=== PATIENT | male | born 1935 | race Caucasian/White ===

== ENCOUNTER 2017-02-20 16:17 | Emergency (ER) | payer MEDICARE, BC ==
[~2017-02-20] VITALS: Ht 167.6 cm; Wt 65.9 kg
[~2017-02-20 16:17] MED LIST: ASPIRIN 32325 MG/TAB PO; ASPIRIN E.C. 8181 MG PO; COREG 6.256.25 MG/TA PO; FISH OIL 1000MG1 CAP PO; NITROSTAT0.4 MG/TAB SL; PEPCID40 MG PO; PLAVIX 75MG TAB75 MG PO; ZOCOR 20MG20 MG PO; ZOCOR 40MG40 MG PO; [UNRECOGNIZED DRUG - REMARK] PO
[2017-02-20 16:39] VITALS: TEMP 97.7
[2017-02-20 17:07] LABS: BASO # 0.1 (0.0-0.2); BASO % 0.7 % (0.0-2.0); EOS # 0.1 (0.0-0.7); EOS % 0.8 % (0-4.0); GRAN % 59.6 % (42.2-75.2); HEMATOCRIT 37.7 % (42.0-52.0); HEMOGLOBIN 12.6 g/dl (13.5-18.0); LYMPH # 2.6 (1.2-3.4); LYMPH % 30.3 % (20.0-51.0); MEAN CELL VOLUME 95 fl (80.0-100.0); MEAN CORPUSCULAR HEMOGLOBIN 32 pg (27.0-31.0); MEAN CORPUSCULAR HGB CONC 33 g/dl (33.0-37.0); MEAN PLATELET VOLUME 9.2 fl (7.4-10.4); MONO # 0.7 (0.1-0.6); MONO % 8.5 % (1.7-9.3); PLATELET COUNT 316 K/mm3 (130-400); RED BLOOD COUNT 3.99 M/mm3 (4.20-5.60); REDCELL DISTRIBUTION WIDTH-CV 11.9 % (11.5-14.5); WHITE BLOOD COUNT 8.4 K/mm3 (4.8-10.8)
[2017-02-20 17:11] LABS: INR 1.1 (0.8-3.0); PROTHROMBIN TIME 12.3 SECONDS (9.7-12.8)
[2017-02-20 17:14] LABS: PARTIAL THROMBOPLASTIN TIME 35.2 SECONDS (26.0-37.0)
[2017-02-20 17:17] LABS: ADJUSTED CALCIUM 9.5 mg/dL (8.4-10.2); ALANINE AMINOTRANSFERASE 27 U/L (21-72); ALBUMIN 3.2 gm/dL (3.5-5.0); ALKALINE PHOSPHATASE 103 U/L (50-136); ANION GAP 9 mmol/L (7-16); BILIRUBIN,TOTAL 0.5 mg/dL (0.0-1.0); BLOOD UREA NITROGEN 29 mg/dL (9-20); CALCIUM 8.9 mg/dL (8.4-10.2); CARBON DIOXIDE 27 mmol/L (22-30); CHLORIDE 103 mmol/L (98-107); CREATININE, serum 1.15 mg/dL (0.66-1.25); GLUCOSE 113 mg/dL (74-106); POTASSIUM 4.4 mmol/L (3.4-5.0); SODIUM 140 mmol/L (137-145); TOTAL PROTEIN 6.4 gm/dL (6.4-8.2)
[2017-02-20 17:29] LABS: TROPONIN-I < 0.012 ng/mL (0.000-0.034)
[2017-02-20] MEDS ORDERED: ASPIRIN 81M81 MG/TA2 PO (17:29)
[2017-02-20] MEDS ORDERED: EPA FISH OIL1 SGL PO (17:32)
[2017-02-20] MEDS ORDERED: COREG 6.256.25 MG/TA PO (17:32)
[2017-02-20] MEDS ORDERED: LIPITOR 40MG TA40 MG PO (17:32)
[2017-02-20] MEDS ORDERED: PLAVIX 75MG TAB75 MG PO (17:32)
[2017-02-20 19:21] VITALS: BP 103/62; PULSE 68
== END 2017-02-20 19:25 | disposition short-term general hospital (02) ==
LOC: COL.ER 16:17
PROVIDERS: Family Medicine
DX: I47.1 Supraventricular tachycardia (principal); I48.92 Unspecified atrial flutter; I25.10 Atherosclerotic heart disease of native coronary artery without angina pectoris; R07.9 Chest pain, unspecified; Z79.82 Long term (current) use of aspirin; Z79.02 Long term (current) use of antithrombotics/antiplatelets
CPT/HCPCS: J0153; J7030

== ENCOUNTER → 2017-12-17 | Outpatient (CLI) | payer MEDICARE, BC ==
[~2017-12-17] VITALS: Ht 167.6 cm; Wt 64.2 kg
[~2017-12-17] MED LIST changes: +ASPIRIN 81M81 MG/TA2 PO; +EPA FISH OIL1 SGL PO; +LIPITOR 40MG TA40 MG PO; +ZEBETA 5MG5 MG PO
[2017-12-17 07:13] VITALS: BP 131/65; PULSE 67
[2017-12-17 08:20] VITALS: BP 140/69; PULSE 65
== END ==
LOC: COL.RAD 12-13 10:00
DX: M51.37 Other intervertebral disc degeneration, lumbosacral region (principal)
CPT/HCPCS: J3301; Q9965

== ENCOUNTER 2020-11-11 14:04 | Inpatient (IN) | payer MEDICARE, BC ==
[~2020-11-11] VITALS: Ht 165.1 cm; Wt 67.4 kg
[2020-11-11] VITALS (375 sets, daily range): BP systolic 155–161; BP diastolic 64–73; PULSE 51–72; TEMP 97.1–98; O2SAT 87–99
[2020-11-11 14:36] LABS: BASO # 0.1 (0.0-0.2); BASO % 0.8 % (0.0-2.0); EOS # 0.1 (0.0-0.7); EOS % 0.8 % (0-4.0); GRAN # 4.2 (1.4-6.5); GRAN % 64.6 % (42.2-75.2); HEMATOCRIT 37.7 % (42.0-52.0); HEMOGLOBIN 12.7 g/dl (13.5-18.0); LYMPH # 1.6 (1.2-3.4); LYMPH % 24.3 % (20.0-51.0); MEAN CELL VOLUME 95 fl (80.0-100.0); MEAN CORPUSCULAR HEMOGLOBIN 32 pg (27.0-31.0); MEAN CORPUSCULAR HGB CONC 34 g/dl (33.0-37.0); MEAN PLATELET VOLUME 9.4 fl (7.4-10.4); MONO # 0.6 (0.1-0.6); MONO % 9.3 % (1.7-9.3); PLATELET COUNT 283 K/mm3 (130-400); RED BLOOD COUNT 3.95 M/mm3 (4.20-5.60); REDCELL DISTRIBUTION WIDTH-CV 12.7 % (11.5-14.5)
[2020-11-11 14:49] LABS: ALBUMIN 3.7 gm/dL (3.5-5.0); BILIRUBIN,TOTAL 1.2 mg/dL (0.0-1.0); CALCIUM 8.8 mg/dL (8.4-10.2); CREATININE, serum 0.97 (0.66-1.25); TOTAL PROTEIN 7.2 gm/dL (6.4-8.2)
[2020-11-11 14:53] LABS: POTASSIUM 2.9 mmol/L (3.4-5.0)
[2020-11-11 15:03] LABS: INR 1.1 (0.8-3.0); PROTHROMBIN TIME 12.4 SECONDS (9.7-12.8)
[2020-11-11 15:14] LABS: TROPONIN-I 0.136 ng/mL (0.000-0.035)
[2020-11-11] MEDS ORDERED: COREG 6.256.25 MG/TA PO (16:37)
--- NOTE | 2020-11-11 17:41 | NUR ---
MD Yovani ordered for Nitroglycerine gtt to be started and maintained
--- NOTE | 2020-11-11 18:07 | NUR ---
ALLEN Gallegos notified of critical Troponin level and sustained hypertension with systolics between 150-160 - Nitro gtt specific orders recieved and imputed
[2020-11-12] VITALS (1169 sets, daily range): BP systolic 130–166; BP diastolic 57–92; PULSE 61–77; TEMP 97.4–98.4; O2SAT 86–99
[2020-11-12 05:47] LABS: ALBUMIN 3.2 gm/dL (3.5-5.0); BILIRUBIN,TOTAL 0.8 mg/dL (0.0-1.0); CHOLESTEROL RISK RATIO 4.6; CREATININE, serum 0.97 (0.66-1.25); POTASSIUM 3.2 mmol/L (3.4-5.0); TOTAL PROTEIN 6.2 gm/dL (6.4-8.2)
[2020-11-12 05:59] LABS: TROPONIN-I 0.136 ng/mL (0.000-0.035)
--- NOTE | 2020-11-12 08:38 | NUR ---
MD Dany and [facility] nurse in room with pt. In room with pt is spouse and son.
--- NOTE | 2020-11-12 08:49 | NUR ---
Pt to cathlab
--- NOTE | 2020-11-12 10:40 | NUR ---
12-Lead EKG complete. Ultrasound in room for echocardiogram
--- NOTE | 2020-11-12 14:00 | NUR ---
Pt experiencing minor confusion, reorientation provided and retained
--- NOTE | 2020-11-12 15:20 | NUR ---
Train Brake Operator met with patient to discuss discharge planning. Patient's , Landy (ph#[phone]) and son, ACE. Patient lives in [facility] with his and sees Dr. Murray for primary care. Patient obtains medications from [facility] with no difficulties. Patient does not use any DME and is independent with ADLS. Patient does not have Advance Directives and is not interested in completing DPOA-HC at this time. Discharge Plan: Home with spouse.
--- NOTE | 2020-11-12 15:36 | NUR ---
MD Yovani notified: increased confusion, halucinations with water on floor and spider on bed. Reorientation provided with limited recall. Pt noncombative and pleasant.
--- NOTE | 2020-11-12 17:50 | NUR ---
Pt restless making attempts to get out of bed, pt did trip bed alarm and was standing at bedside tangled in iv lines and monitoring equipment. Pt steady on feet. Pt back in bed without difficulty and only minor aggression. Pt given detailed reorientation and pt able to comprehend and remember things about hospital situation that earlier he was not able to recall. Charge,MORGAN Okeefe informed at first sign of confusion from earlier - MORGAN Rayauniversal branch consultant notified on situation and pt's wish to get out of bed and high fall risk
--- NOTE | 2020-11-12 20:15 | NUR ---
Assessment complete and charted. Patient has drainage present on TR band. Report from dayshift stated no change in drainage from previous assessments. Removed 2 ml of air from TR band at this time. Patient disorientated. Frequent reorientation required. Call light in reach. Bed alarm in place.
[2020-11-13] VITALS (256 sets, daily range): BP systolic 133–149; BP diastolic 57–67; PULSE 64–72; TEMP 98–98.8; O2SAT 79–99
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
--- NOTE | 2020-11-13 05:32 | NUR ---
Patient pacing in room. Refusing all medications and telemetry. Elina HARO aware.
--- NOTE | 2020-11-13 06:59 | NUR ---
Patient continues to refuse monitoring this AM along with Nitro gtt. Resting in bed. Report given to MORGAN Sevilla
[2020-11-13 07:16] LABS: BASO # 0.1 (0.0-0.2); BASO % 0.6 % (0.0-2.0); EOS # 0.1 (0.0-0.7); EOS % 0.6 % (0-4.0); GRAN # 6.2 (1.4-6.5); GRAN % 79.8 % (42.2-75.2); HEMOGLOBIN 11.9 g/dl (13.5-18.0); LYMPH # 0.8 (1.2-3.4); LYMPH % 9.8 % (20.0-51.0); MEAN CELL VOLUME 97 fl (80.0-100.0); MEAN CORPUSCULAR HEMOGLOBIN 32 pg (27.0-31.0); MEAN CORPUSCULAR HGB CONC 33 g/dl (33.0-37.0); MEAN PLATELET VOLUME 9.4 fl (7.4-10.4); MONO # 0.7 (0.1-0.6); MONO % 8.9 % (1.7-9.3); PLATELET COUNT 255 K/mm3 (130-400); RED BLOOD COUNT 3.72 M/mm3 (4.20-5.60); REDCELL DISTRIBUTION WIDTH-CV 12.9 % (11.5-14.5)
[2020-11-13 07:22] LABS: CALCIUM 8.4 mg/dL (8.4-10.2); CREATININE, serum 1.06 (0.66-1.25); MAGNESIUM 2.1 mg/dL (1.6-2.3); POTASSIUM 3.5 mmol/L (3.4-5.0)
[2020-11-13 07:23] LABS: HEMATOCRIT 36.2 % (42.0-52.0)
--- NOTE | 2020-11-13 07:47 | NUR ---
Pt ambulated around unit multiple times without difficulty. Pt oriented and pleasant stating "I feel good, I am ready to go home".
[2020-11-13] MEDS ORDERED: ZEBETA10 MG PO (10:09)
--- NOTE | 2020-11-13 10:49 | NUR ---
Pt ambulated out of unit to family's vehicle without difficulty. All questions answered - pt's spouse and son DJ present
== END 2020-11-13 10:42 | disposition home or self-care (01) | DRG 246 ==
LOC: COL.ER 14:04 → ICU 15:55 → MEDICAL 15:55 → ICU 16:44
PROVIDERS: Emergency Medicine; ADMIT Hospitalist
PROC: 027034Z Dilation of Coronary Artery, One Artery with Drug-eluting Intraluminal Device, Percutaneous Approach (ICD-10-PCS; principal; 2020-11-12)
PROC: 4A023N7 Measurement of Cardiac Sampling and Pressure, Left Heart, Percutaneous Approach (ICD-10-PCS; 2020-11-12)
PROC: B2111ZZ Fluoroscopy of Multiple Coronary Arteries using Low Osmolar Contrast (ICD-10-PCS; 2020-11-12)
DX: I21.4 Non-ST elevation (NSTEMI) myocardial infarction (principal); I50.31 Acute diastolic (congestive) heart failure; F05 Delirium due to known physiological condition; I25.10 Atherosclerotic heart disease of native coronary artery without angina pectoris; E78.5 Hyperlipidemia, unspecified; J44.9 Chronic obstructive pulmonary disease, unspecified; I27.20 Pulmonary hypertension, unspecified; E87.6 Hypokalemia; F17.210 Nicotine dependence, cigarettes, uncomplicated; D64.9 Anemia, unspecified; Z85.51 Personal history of malignant neoplasm of bladder; Z79.82 Long term (current) use of aspirin; Z20.822 Contact with and (suspected) exposure to COVID-19
CPT/HCPCS: 99223-AI; 99232-AI; 99239; C1725; C1769; C1874; C1887; C9600; J0583; J1644; J1650; J2250; J2405; J3010; J3480; J7030

== ENCOUNTER 2020-12-13 17:11 | Outpatient (RCR) | payer MEDICARE, BC ==
[~2020-12-13 17:11] MED LIST changes: +ZEBETA10 MG PO
== END 2020-12-20 16:44 | disposition still patient (30) ==
LOC: COL.CR 17:11
DX: Z48.812 Encounter for surgical aftercare following surgery on the circulatory system (principal); Z95.5 Presence of coronary angioplasty implant and graft

== ENCOUNTER 2021-01-10 11:08 | Emergency (ER) | payer MEDICARE, BC ==
[~2021-01-10] VITALS: Ht 162.6 cm; Wt 61.4 kg
[2021-01-10 11:15] VITALS: TEMP 97.6
[2021-01-10 11:26] LABS: COLLECTION METHOD CLEAN CATCH
[2021-01-10 11:47] LABS: BASO # 0.1 (0.0-0.2); BASO % 0.9 % (0.0-2.0); EOS # 0.1 (0.0-0.7); EOS % 1.6 % (0-4.0); GRAN % 70.5 % (42.2-75.2); HEMATOCRIT 38.9 % (42.0-52.0); HEMOGLOBIN 13.2 g/dl (13.5-18.0); LYMPH # 1.3 (1.2-3.4); LYMPH % 18.8 % (20.0-51.0); MEAN CELL VOLUME 95 fl (80.0-100.0); MEAN CORPUSCULAR HEMOGLOBIN 32 pg (27.0-31.0); MEAN CORPUSCULAR HGB CONC 34 g/dl (33.0-37.0); MEAN PLATELET VOLUME 9.8 fl (7.4-10.4); MONO # 0.6 (0.1-0.6); MONO % 8.1 % (1.7-9.3); PLATELET COUNT 300 K/mm3 (130-400); REDCELL DISTRIBUTION WIDTH-CV 12.7 % (11.5-14.5)
[2021-01-10 11:52] LABS: MUCOUS Present /lpf; PH 6 (5-8); SQUAMOUS EPITHELIAL None Seen /hpf; URINE APPEARANCE Cloudy; URINE BACTERIA None Seen /hpf; URINE BILIRUBIN Negative (NEGATIVE); URINE BLOOD 3+ (NEGATIVE); URINE COLOR Amber; URINE GLUCOSE Negative (NEGATIVE); URINE KETONE Negative (NEGATIVE); URINE LEUKOCYTE ESTERASE Negative (NEGATIVE); URINE NITRATE Negative (NEGATIVE); URINE PROTEIN(semi-quant) 2+ (NEGATIVE); URINE RBC >50 /hpf; URINE UROBILINOGEN Negative (NEGATIVE)
[2021-01-10 11:56] LABS: ALBUMIN 3.6 gm/dL (3.5-5.0); BILIRUBIN,TOTAL 0.6 mg/dL (0.0-1.0); CALCIUM 8.6 mg/dL (8.4-10.2); CREATININE, serum 1.03 (0.66-1.25); POTASSIUM 3.2 mmol/L (3.4-5.0)
[2021-01-10 12:48] VITALS: BP 151/78; PULSE 54
== END 2021-01-10 12:05 | disposition home or self-care (01) ==
LOC: COL.ER 11:08
PROVIDERS: Family Medicine
DX: R31.9 Hematuria, unspecified (principal); I10 Essential (primary) hypertension; E78.5 Hyperlipidemia, unspecified; J44.9 Chronic obstructive pulmonary disease, unspecified; I25.10 Atherosclerotic heart disease of native coronary artery without angina pectoris; Z85.51 Personal history of malignant neoplasm of bladder; Z79.02 Long term (current) use of antithrombotics/antiplatelets; Z79.82 Long term (current) use of aspirin; Z79.899 Other long term (current) drug therapy

== ENCOUNTER 2021-01-28 05:15 | Day surgery (SDC) | payer MEDICARE, BC ==
[2021-01-28] VITALS (14 sets, daily range): BP systolic 113–197; BP diastolic 54–78; PULSE 45–107; TEMP 97.3–97.8
[~2021-01-28] VITALS: Ht 165.1 cm; Wt 62.0 kg
[2021-01-28] MEDS ORDERED: SEROQUEL 2525 MG/TAB PO (06:29)
--- NOTE | 2021-01-28 08:40 | NUR ---
Pt returns from PACU to [facility], at bedside. Pt awake and alert, denies needs. Provided applesauce and coffee. VSS.
--- NOTE | 2021-01-28 08:55 | NUR ---
Pt's blood pressure has increased and now complains of abdominal pain, has been up to the bathroom without difficulty and voided with minimal bleeding and small clots. Has tolerated food with no nausea, will give a pain pill.
--- NOTE | 2021-01-28 09:55 | NUR ---
Pt has been up to the bathroom multiple times for bladder spasms and complains of lower abdominal pain, reports minimal clots in urine. Dr. Raymond notified and orders received for a Levsin 0.125 mg SL.
--- NOTE | 2021-01-28 10:15 | NUR ---
Pt sitting on side of bed, no improvement in pain, heart rate noted to be irregular and range from 45-67. MJosephine Ureña CATERING SOUS CHEF notified and no new orders received.
--- NOTE | 2021-01-28 10:40 | NUR ---
Pt given Morphine and encouraged to lay down and rest, warm blanket applied to abdomen.
--- NOTE | 2021-01-28 11:20 | NUR ---
Morphine repeated for abdominal pain and bladder spasms. Pt continues to go to the bathroom frequently, reports urine is yellow with very small clots.
--- NOTE | 2021-01-28 12:00 | NUR ---
Dr. Raymond notified of pt's B/p, heart rate and pain. Order received to have pt to go to the surgical floor and he will come evaluate pt later today. wool shearing supervisor notified.
--- NOTE | 2021-01-28 12:15 | NUR ---
Pt up to the bathroom and vomitted a small amount into the toilet, reports pain has eased slightly but now has an upset stomach. Pt returns to bed and Zofran given per orders.
--- NOTE | 2021-01-28 13:05 | NUR ---
Pt back to the bathroom feels nauseated again, urine yellow and now clear. Discomfort 09/22. Will continue to monitor. Awaiting call from Surgical floor for report.
--- NOTE | 2021-01-28 13:30 | NUR ---
Pt eating a cracker, stills feels a little nauseated so doesn't want to try a pain pill at this time. remains at bedside, call light in reach.
--- NOTE | 2021-01-28 13:45 | NUR ---
Pt now feeling better and requesting to go home. B/p has improved and heart rate regular now. Dr. Raymond notified and okay with pt to go home and to have pt come by his office to picker operator prescription. Pt reports no clots in urine and light pink to yellow in color.
--- NOTE | 2021-01-28 14:25 | NUR ---
Pt and given discharge instructions, IV d/c'd to right wrist. Pt to private car via w/c left in care of his .
[2021-01-29] MEDS ORDERED: PEPCID 20MG TAB20 MG PO (06:59)
[2021-01-29] MEDS ORDERED: ZOFRAN ODT4 MG PO (06:59)
== END 2021-01-28 14:25 | disposition home or self-care (01) ==
LOC: SDCO 05:15
DX: R31.0 Gross hematuria (principal); N28.89 Other specified disorders of kidney and ureter; I10 Essential (primary) hypertension; I25.2 Old myocardial infarction; I25.10 Atherosclerotic heart disease of native coronary artery without angina pectoris; I27.20 Pulmonary hypertension, unspecified; E78.5 Hyperlipidemia, unspecified; M19.90 Unspecified osteoarthritis, unspecified site; D64.9 Anemia, unspecified; J44.9 Chronic obstructive pulmonary disease, unspecified; F17.210 Nicotine dependence, cigarettes, uncomplicated; Z85.51 Personal history of malignant neoplasm of bladder; Z79.01 Long term (current) use of anticoagulants; Z79.82 Long term (current) use of aspirin; Z79.899 Other long term (current) drug therapy; Z95.1 Presence of aortocoronary bypass graft
CPT/HCPCS: C1769; J0690; J1100; J2270; J2405; J2704; J3010; J7120; Q9967

== ENCOUNTER 2021-01-29 02:10 | Emergency (ER) | payer MEDICARE, BC ==
[~2021-01-29] VITALS: Ht 165.1 cm; Wt 65.9 kg
[~2021-01-29 02:10] MED LIST changes: +SEROQUEL 2525 MG/TAB PO
[2021-01-29 03:00] LABS: BASO % 0.1 % (0.0-2.0); GRAN # 10.1 (1.4-6.5); GRAN % 83.5 % (42.2-75.2); HEMATOCRIT 38.4 % (42.0-52.0); HEMOGLOBIN 13.2 g/dl (13.5-18.0); LYMPH # 0.9 (1.2-3.4); LYMPH % 7.1 % (20.0-51.0); MEAN CELL VOLUME 93 fl (80.0-100.0); MEAN CORPUSCULAR HEMOGLOBIN 32 pg (27.0-31.0); MEAN CORPUSCULAR HGB CONC 34 g/dl (33.0-37.0); MEAN PLATELET VOLUME 9.7 fl (7.4-10.4); MONO # 1.1 (0.1-0.6); PLATELET COUNT 265 K/mm3 (130-400); RED BLOOD COUNT 4.13 M/mm3 (4.20-5.60); REDCELL DISTRIBUTION WIDTH-CV 12.4 % (11.5-14.5)
[2021-01-29 03:12] LABS: ALBUMIN 3.8 gm/dL (3.5-5.0); BILIRUBIN,TOTAL 0.6 mg/dL (0.0-1.0); CALCIUM 9.1 mg/dL (8.4-10.2); CREATININE, serum 1.43 (0.66-1.25); POTASSIUM 4.8 mmol/L (3.4-5.0)
[2021-01-29 03:30] LABS: TROPONIN-I 0.023 ng/mL (0.000-0.035)
[2021-01-29 04:11] LABS: COLLECTION METHOD CLEAN CATCH
[2021-01-29 04:25] LABS: PH 5 (5-8); SQUAMOUS EPITHELIAL None Seen /hpf; URINE APPEARANCE Cloudy; URINE BACTERIA None Seen /hpf; URINE BILIRUBIN Negative (NEGATIVE); URINE BLOOD 3+ (NEGATIVE); URINE COLOR Yellow; URINE GLUCOSE Negative (NEGATIVE); URINE KETONE Negative (NEGATIVE); URINE LEUKOCYTE ESTERASE Negative (NEGATIVE); URINE NITRATE Negative (NEGATIVE); URINE PROTEIN(semi-quant) 1+ (NEGATIVE); URINE RBC >50 /hpf; URINE UROBILINOGEN Negative (NEGATIVE)
[2021-01-29 05:55] VITALS: TEMP 79.6
[2021-01-29 06:57] VITALS: BP 182/72; PULSE 65
[2021-01-29] MEDS ORDERED: PEPCID 20MG TAB20 MG PO (06:59)
[2021-01-29] MEDS ORDERED: ZOFRAN ODT4 MG PO (06:59)
== END 2021-01-29 07:09 | disposition home or self-care (01) ==
LOC: COL.ER 02:10
PROVIDERS: Emergency Medicine
DX: R10.30 Lower abdominal pain, unspecified (principal); R11.2 Nausea with vomiting, unspecified; I10 Essential (primary) hypertension; I25.2 Old myocardial infarction; Z95.9 Presence of cardiac and vascular implant and graft, unspecified; Z79.82 Long term (current) use of aspirin; Z79.02 Long term (current) use of antithrombotics/antiplatelets; Z79.899 Other long term (current) drug therapy
CPT/HCPCS: C9113; J2270; J2405; J2550; J2765; J7030; Q9967

== ENCOUNTER 2021-01-31 15:34 | Inpatient (IN) | payer MEDICARE, BC ==
[2021-01-31] VITALS (129 sets, daily range): BP systolic 128; BP diastolic 76; PULSE 105; TEMP 97.9; O2SAT 90–98
[~2021-01-31] VITALS: Ht 165.1 cm; Wt 64.4 kg
[~2021-01-31 15:34] MED LIST changes: +PEPCID 20MG TAB20 MG PO; +ZOFRAN ODT4 MG PO
[2021-01-31 16:29] LABS: BASO # 0.1 (0.0-0.2); BASO % 0.4 % (0.0-2.0); EOS % 0.1 % (0-4.0); GRAN # 11.4 (1.4-6.5); GRAN % 81.9 % (42.2-75.2); HEMOGLOBIN 12.4 g/dl (13.5-18.0); LYMPH % 7.2 % (20.0-51.0); MEAN CELL VOLUME 94 fl (80.0-100.0); MEAN CORPUSCULAR HEMOGLOBIN 32 pg (27.0-31.0); MEAN CORPUSCULAR HGB CONC 34 g/dl (33.0-37.0); MEAN PLATELET VOLUME 10.1 fl (7.4-10.4); MONO # 1.4 (0.1-0.6); PLATELET COUNT 253 K/mm3 (130-400); RED BLOOD COUNT 3.89 M/mm3 (4.20-5.60); REDCELL DISTRIBUTION WIDTH-CV 12.5 % (11.5-14.5)
[2021-01-31 16:31] LABS: COLLECTION METHOD CLEAN CATCH
[2021-01-31 16:51] LABS: ALBUMIN 3.4 gm/dL (3.5-5.0); BILIRUBIN,TOTAL 1.1 mg/dL (0.0-1.0); CALCIUM 8.9 mg/dL (8.4-10.2); CREATININE, serum 1.42 (0.66-1.25); HEMATOCRIT 36.4 % (42.0-52.0); TOTAL PROTEIN 6.8 gm/dL (6.4-8.2)
[2021-01-31 17:02] LABS: MUCOUS Present /lpf; PH 6 (5-8); RED BLOOD CELL CAST >12 /lpf; SQUAMOUS EPITHELIAL None Seen /hpf; URINE APPEARANCE Turbid; URINE BACTERIA None Seen /hpf; URINE BILIRUBIN Negative (NEGATIVE); URINE BLOOD 3+ (NEGATIVE); URINE COLOR Red; URINE GLUCOSE Negative (NEGATIVE); URINE KETONE Trace (NEGATIVE); URINE LEUKOCYTE ESTERASE 2+ (NEGATIVE); URINE NITRATE Negative (NEGATIVE); URINE PROTEIN(semi-quant) 2+ (NEGATIVE); URINE RBC >50 /hpf; URINE UROBILINOGEN Negative (NEGATIVE)
[2021-01-31 17:08] LABS: TROPONIN-I 0.168 ng/mL (0.000-0.035)
--- NOTE | 2021-01-31 20:35 | NUR ---
Received report from ED nurseDa.
--- NOTE | 2021-01-31 20:57 | NUR ---
Patient arrives to ICU room 7 via ED stretcher. Patient is able to pivot into ICU bed with standby assistance. Landy, patient's , at bedside. Initial BP 127/107; 128/76 with recycle. Patient on room air, tolerating well. All vitals within normal limits. He denies any pain or discomfort. Patient continues to be in afib ranging 100-120s. Hospitalist, Elina, aware of patient's arrival. Two peripheral saline-locked peripheral IV's in each forearm. Scattered bruising noted to the bilateral upper extremities; no other skin issues noted. Bed in lowest postion, call light within reach, all alarms are on.
[2021-02-01] VITALS (773 sets, daily range): BP systolic 121–179; BP diastolic 66–110; PULSE 59–92; TEMP 97.4–98.1; O2SAT 83–100
--- NOTE | 2021-02-01 02:50 | NUR ---
Patient noted to be in SR as of 245. Hospitalist, Elina, notified. EKG ordered to confirm.
[2021-02-01 06:15] LABS: BASO % 0.3 % (0.0-2.0); EOS # 0.1 (0.0-0.7); EOS % 0.6 % (0-4.0); GRAN # 8.7 (1.4-6.5); GRAN % 79.8 % (42.2-75.2); HEMOGLOBIN 10.7 g/dl (13.5-18.0); LYMPH % 9.6 % (20.0-51.0); MEAN CELL VOLUME 93 fl (80.0-100.0); MEAN CORPUSCULAR HEMOGLOBIN 32 pg (27.0-31.0); MEAN CORPUSCULAR HGB CONC 34 g/dl (33.0-37.0); MEAN PLATELET VOLUME 10.3 fl (7.4-10.4); MONO % 9.3 % (1.7-9.3); PLATELET COUNT 238 K/mm3 (130-400); RED BLOOD COUNT 3.34 M/mm3 (4.20-5.60); REDCELL DISTRIBUTION WIDTH-CV 12.3 % (11.5-14.5)
[2021-02-01 06:16] LABS: HEMATOCRIT 31.1 % (42.0-52.0)
[2021-02-01 07:01] LABS: TSH w REFLEX 0.437 uIU/mL (0.465-4.680)
[2021-02-01 07:08] LABS: TROPONIN-I 0.148 ng/mL (0.000-0.035)
[2021-02-01 08:46] LABS: CALCIUM 8.2 mg/dL (8.4-10.2); CREATININE, serum 1.3 (0.66-1.25); MAGNESIUM 1.9 mg/dL (1.6-2.3); POTASSIUM 3.6 mmol/L (3.4-5.0)
--- NOTE | 2021-02-01 09:18 | NUR ---
Conference Specialist met with patient and his , Landy (ph#[phone]) to discuss discharge planning. Patient lives in [place] with his and sees Dr. Murray for primary care. Patient obtains medications from [facility] with no difficulties and does not use any DME. Patient reports independence with ADLS and plans to return home upon discharge. PT/OT has been ordered for patient. Patient does not have Advance Directives and was not interested in completing DPOA-HC at this time. Patient's legal next of kin would be his , Landy. Discharge Plan: Home, pending PT/OT recommendations.
--- NOTE | 2021-02-01 21:00 | NUR ---
Received report from MORGAN Okeefe. Patient resting quietly in bed. Amio drip confirmed at bedside. Patient denies any pain or discomfort; all vitals within normal limits. No further needs noted.
[2021-02-02] VITALS (925 sets, daily range): BP systolic 109–178; BP diastolic 55–86; PULSE 59–77; TEMP 97.6–98; O2SAT 81–100
[2021-02-02 06:20] LABS: BASO % 0.5 % (0.0-2.0); EOS # 0.1 (0.0-0.7); GRAN # 6.9 (1.4-6.5); GRAN % 79.1 % (42.2-75.2); HEMOGLOBIN 11.8 g/dl (13.5-18.0); LYMPH # 0.8 (1.2-3.4); MEAN CELL VOLUME 92 fl (80.0-100.0); MEAN CORPUSCULAR HEMOGLOBIN 32 pg (27.0-31.0); MEAN CORPUSCULAR HGB CONC 35 g/dl (33.0-37.0); MONO # 0.9 (0.1-0.6); MONO % 10.1 % (1.7-9.3); PLATELET COUNT 232 K/mm3 (130-400); RED BLOOD COUNT 3.68 M/mm3 (4.20-5.60); REDCELL DISTRIBUTION WIDTH-CV 12.4 % (11.5-14.5)
[2021-02-02 06:28] LABS: CALCIUM 8.4 mg/dL (8.4-10.2); CREATININE, serum 1.12 (0.66-1.25); POTASSIUM 3.5 mmol/L (3.4-5.0)
[2021-02-02 06:29] LABS: HEMATOCRIT 33.9 % (42.0-52.0)
--- NOTE | 2021-02-02 10:22 | NUR ---
Initial visit; Patient thanked Retail Agent for looking in on him and was receptive to having Retail Agent say a prayer of thanksgiving for the improvement in his health. Retail Agent offered God's continued blessings.
--- NOTE | 2021-02-02 17:37 | NUR ---
PT HAND OFF REPORT CALLED TO MORGAN WINKLER.
--- NOTE | 2021-02-02 18:55 | NUR ---
Pt arrived to floor, resting in bed, doing well, at bedside to assist with needs, eating well, oriented to room. Report given to MORGAN Mishra who will resume care.
--- NOTE | 2021-02-02 20:00 | NUR ---
Assessment complete at this time. Granddaughter and currently at bedside; an educational review of Sotalol and plan of care is provided. Patient has no complaints of pain. Kan catheter is draining tea-colored urine with occassional blood clot. He ambulates with SBA to restroom. No edema is noted. HR is regular rhythm with a rate of 62. His BP is 109/[address] Chamberlain is notified; He orders to skip tonight's dose of sotalol and reevaluate in AM. Call light in reach, will continue to monitor.
[2021-02-03 03:05] VITALS: BP 147/58; PULSE 64; TEMP 97.6
[2021-02-03 07:06] LABS: BASO % 0.5 % (0.0-2.0); EOS # 0.2 (0.0-0.7); EOS % 2.6 % (0-4.0); GRAN # 4.3 (1.4-6.5); GRAN % 69.1 % (42.2-75.2); HEMOGLOBIN 10.2 g/dl (13.5-18.0); LYMPH # 0.9 (1.2-3.4); MEAN CELL VOLUME 93 fl (80.0-100.0); MEAN CORPUSCULAR HEMOGLOBIN 32 pg (27.0-31.0); MEAN CORPUSCULAR HGB CONC 34 g/dl (33.0-37.0); MONO # 0.8 (0.1-0.6); MONO % 13.5 % (1.7-9.3); PLATELET COUNT 222 K/mm3 (130-400); RED BLOOD COUNT 3.22 M/mm3 (4.20-5.60); REDCELL DISTRIBUTION WIDTH-CV 12.6 % (11.5-14.5)
[2021-02-03 07:12] LABS: HEMATOCRIT 29.8 % (42.0-52.0)
[2021-02-03 07:20] LABS: CALCIUM 8.1 mg/dL (8.4-10.2); CREATININE, serum 1.24 (0.66-1.25); MAGNESIUM 1.7 mg/dL (1.6-2.3); POTASSIUM 3.8 mmol/L (3.4-5.0)
[2021-02-03 07:56] VITALS: BP 150/55; PULSE 63; TEMP 98
--- NOTE | 2021-02-03 08:51 | NUR ---
Pt bleeding from loop recorder insertion site, bandage soaked through. removed bandage to access site, insertion site dehisced, cleaned area, applied steri-strip over site, rebandaged with folded 4X4 gauze sponges, covered and applied traction using micropore tape.
--- NOTE | 2021-02-03 08:59 | NUR ---
Pt awake upon entry. No C/O pain at this time. Shift assessments complete, left Pt call light in reach, sitting in the recliner.
--- NOTE | 2021-02-03 09:30 | NUR ---
Safety Relief Valve Technician attended clinical rounds with the team. Present his , Landy and granddaughter, Christiana. PT/OT are recommending home with spouse. SW discussed home health and they were not ready to make any decision regarding home health at this time. *Discharge disposition at this time: Home with spouse
--- NOTE | 2021-02-03 10:16 | NUR ---
Follow-up; Culinary Assistant offered encouragement this morning as "Bill" walked across the room and is looking as if he is doing better.
[2021-02-03 10:32] LABS: INR 1.2 (0.8-3.0); PROTHROMBIN TIME 12.9 SECONDS (9.7-12.8)
--- NOTE | 2021-02-03 11:40 | NUR ---
Checked area on Pt where bleeding had occured this AM, bandage remains CDI.
--- NOTE | 2021-02-03 11:45 | NUR ---
Checked bandage on Pt, remains CDI.
[2021-02-03 12:23] VITALS: BP 138/47; PULSE 59; TEMP 98
--- NOTE | 2021-02-03 13:05 | NUR ---
Checked bandage on Pt, remains CDI.
--- NOTE | 2021-02-03 16:28 | NUR ---
checked bandage on Pt, remains CDI.
[2021-02-03 17:47] VITALS: BP 139/55; PULSE 63; TEMP 97.7
--- NOTE | 2021-02-03 18:00 | NUR ---
Checked bandage on Pt, remains CDI.
--- NOTE | 2021-02-03 19:36 | NUR ---
REPORT RECIEVED FROM DIOR JANETTE RAMIREZ. DSG TO UPPER CHEST C/D/I. INFORMED PT TO CALL IF NOTED ANY BLEEDING. SLEPT ALL NIGHT LAST NIGHT AFTER REPORT TAKEN AND NEVER NOTED ANY BLEEDING. LAST WELL CHECK ON HIM WAS PRIOR TO SHIFT CHANGE APPRX 6AM AND APPEARED TO BE C/D/I.
[2021-02-03 20:34] VITALS: BP 160/59; PULSE 62; TEMP 97.6
--- NOTE | 2021-02-03 22:54 | NUR ---
DSG TO LT UPPER CHEST REMAINS C/D/I. DID CHANGE A BANDAGE TO LEFT ELBOW APPEARED TO BE OLD SKIN TEAR. NEEDS MET. LIGHTS DOWN TO REST.
--- NOTE | 2021-02-03 23:15 | NUR ---
ALERT AND OX4. DENIES ANY PAIN, SOA OR NAUSEA. DSG TO CHEST C/D/I. INSTUCTED TO CALL IMMEDIATELY IF NOTICES BLOOD. FREQ ROUNDING. POLANCO CATH TO DD LIGHT PINK URINE. IV TO LT FA FLUSHED. SKIN TEAR TO ELBOW CHANGED. CALL LIGHT WI REACH. POC DISCUSSED. NEEDS MET
[2021-02-03 23:30] VITALS: BP 154/57; PULSE 58; TEMP 97.7
--- NOTE | 2021-02-04 01:07 | NUR ---
DSG TO LT UPPER CHEST C/D/I. PT DENIES NEEDS.
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
[2021-02-04 04:33] VITALS: BP 148/60; PULSE 59; TEMP 97.7
--- NOTE | 2021-02-04 06:01 | NUR ---
RESTED THROUGH THE NIGHT WITHOUT INCIDENT. DSG REMAINS C/D/I TO UPPER CHEST. COFFEE PROVIDED THIS AM PT IS UP WATCHING TV AT THIS TIME.
[2021-02-04 07:04] LABS: BASO % 0.5 % (0.0-2.0); EOS # 0.2 (0.0-0.7); EOS % 3.5 % (0-4.0); GRAN # 4.6 (1.4-6.5); GRAN % 70.4 % (42.2-75.2); LYMPH # 0.9 (1.2-3.4); LYMPH % 13.4 % (20.0-51.0); MEAN CELL VOLUME 95 fl (80.0-100.0); MEAN CORPUSCULAR HGB CONC 34 g/dl (33.0-37.0); MONO # 0.8 (0.1-0.6); MONO % 11.7 % (1.7-9.3); PLATELET COUNT 234 K/mm3 (130-400); RED BLOOD COUNT 3.08 M/mm3 (4.20-5.60); REDCELL DISTRIBUTION WIDTH-CV 12.5 % (11.5-14.5)
[2021-02-04 07:09] LABS: HEMATOCRIT 29.1 % (42.0-52.0); HEMOGLOBIN 9.9 g/dl (13.5-18.0); MEAN CORPUSCULAR HEMOGLOBIN 32 pg (27.0-31.0)
--- NOTE | 2021-02-04 07:16 | NUR ---
Checked Pt's bandage over implant site, remains CDI.
[2021-02-04 07:20] LABS: CALCIUM 7.9 mg/dL (8.4-10.2); CREATININE, serum 1.05 (0.66-1.25); MAGNESIUM 1.6 mg/dL (1.6-2.3); POTASSIUM 3.5 mmol/L (3.4-5.0)
[2021-02-04 07:31] VITALS: BP 140/61; PULSE 57; TEMP 97.4
--- NOTE | 2021-02-04 08:50 | NUR ---
Pt awake upon entry, sitting in the recliner. bandage CDI. No C/O pain at this time. Shift assessments complete, left Pt call light in reach, bed in lowest position.
[2021-02-04] MEDS ORDERED: NORVASC 5MG5 MG/TAB PO (10:53)
[2021-02-04 11:32] VITALS: BP 128/59; PULSE 52; TEMP 97.3
--- NOTE | 2021-02-04 14:30 | NUR ---
Pt discharged to home, discussed discharge information with Pt, answered questions. Escorted Pt to entrance, Pt left with spouse via private transportation.
--- NOTE | 2021-02-04 15:28 | NUR ---
Court Attendant attended clinical rounds with the team. The patient's is present. The patient to tentatively discharge home with spouse today, 02/04. The patient is independent and abmulating the halls with no difficulties. There are no additional needs.
== END 2021-02-04 14:30 | disposition home or self-care (01) | DRG 261 ==
LOC: COL.ER 15:34 → ICU 17:34 → MEDICAL 02-02 18:24
PROVIDERS: Emergency Medicine; Internal Medicine; Student in an Organized Health Care Education/Training Program; ADMIT Internal Medicine
PROC: 0JH632Z Insertion of Monitoring Device into Chest Subcutaneous Tissue and Fascia, Percutaneous Approach (ICD-10-PCS; principal; 2021-02-02)
DX: I48.91 Unspecified atrial fibrillation (principal); N39.0 Urinary tract infection, site not specified; N17.9 Acute kidney failure, unspecified; R31.9 Hematuria, unspecified; J44.9 Chronic obstructive pulmonary disease, unspecified; I08.3 Combined rheumatic disorders of mitral, aortic and tricuspid valves; I71.4 Abdominal aortic aneurysm, without rupture; I42.3 Endomyocardial (eosinophilic) disease; Z20.822 Contact with and (suspected) exposure to COVID-19; S20.219A Contusion of unspecified front wall of thorax, initial encounter; I25.2 Old myocardial infarction; I10 Essential (primary) hypertension; L27.0 Generalized skin eruption due to drugs and medicaments taken internally; I25.10 Atherosclerotic heart disease of native coronary artery without angina pectoris; T36.1X5A Adverse effect of cephalosporins and other beta-lactam antibiotics, initial encounter; E78.5 Hyperlipidemia, unspecified; F17.210 Nicotine dependence, cigarettes, uncomplicated; R53.81 Other malaise; Y92.239 Unspecified place in hospital as the place of occurrence of the external cause; Z79.82 Long term (current) use of aspirin; Z79.02 Long term (current) use of antithrombotics/antiplatelets; Z95.5 Presence of coronary angioplasty implant and graft; Z85.51 Personal history of malignant neoplasm of bladder; R10.30 Lower abdominal pain, unspecified; R11.2 Nausea with vomiting, unspecified; Z95.9 Presence of cardiac and vascular implant and graft, unspecified; Z79.899 Other long term (current) drug therapy
CPT/HCPCS: 99223-AI; 99232-AI; 99233-AI; 99239; C1764; C9113; J0282; J0360; J0696; J1650; J1956; J2270; J2405; J2550; J2765; J7030; J7060; Q9967

== ENCOUNTER 2021-02-22 18:26 | Emergency (ER) | payer MEDICARE, BC ==
[~2021-02-22] VITALS: Ht 165.1 cm; Wt 61.1 kg
[~2021-02-22 18:26] MED LIST changes: +NORVASC 5MG5 MG/TAB PO
[2021-02-22 18:58] VITALS: TEMP 98.1
[2021-02-22 20:03] LABS: BASO # 0.1 (0.0-0.2); EOS # 0.2 (0.0-0.7); EOS % 3.1 % (0-4.0); GRAN # 4.4 (1.4-6.5); GRAN % 60.1 % (42.2-75.2); HEMATOCRIT 34.3 % (42.0-52.0); HEMOGLOBIN 11.4 g/dl (13.5-18.0); LYMPH # 1.9 (1.2-3.4); LYMPH % 26.4 % (20.0-51.0); MEAN CELL VOLUME 96 fl (80.0-100.0); MEAN CORPUSCULAR HEMOGLOBIN 32 pg (27.0-31.0); MEAN CORPUSCULAR HGB CONC 33 g/dl (33.0-37.0); MEAN PLATELET VOLUME 9.2 fl (7.4-10.4); MONO # 0.7 (0.1-0.6); PLATELET COUNT 332 K/mm3 (130-400); RED BLOOD COUNT 3.59 M/mm3 (4.20-5.60); REDCELL DISTRIBUTION WIDTH-CV 12.4 % (11.5-14.5)
[2021-02-22 20:12] LABS: ALBUMIN 3.7 gm/dL (3.5-5.0); BILIRUBIN,TOTAL 0.4 mg/dL (0.0-1.0); CALCIUM 9.1 mg/dL (8.4-10.2); CREATININE, serum 1.33 (0.66-1.25)
[2021-02-22 20:15] LABS: INR 1.1 (0.8-3.0); PROTHROMBIN TIME 12.1 SECONDS (9.7-12.8)
[2021-02-23 00:11] VITALS: BP 145/68; PULSE 64
== END 2021-02-23 00:13 | disposition home or self-care (01) ==
LOC: COL.ER 18:26
PROVIDERS: Emergency Medicine Emergency Medical Services
DX: S50.12XA Contusion of left forearm, initial encounter (principal); S80.02XA Contusion of left knee, initial encounter; S00.31XA Abrasion of nose, initial encounter; I48.91 Unspecified atrial fibrillation; I25.2 Old myocardial infarction; Z79.02 Long term (current) use of antithrombotics/antiplatelets; Z79.01 Long term (current) use of anticoagulants; W19.XXXA Unspecified fall, initial encounter; Y92.002 Bathroom of unspecified non-institutional (private) residence as the place of occurrence of the external cause

== ENCOUNTER → 2021-04-05 | Outpatient (CLI) | payer MEDICARE, BC ==
[~2021-04-05] MED LIST changes: +BETAPACE 80MG80 MG PO; +ELIQUIS 5MG PO; +IMDUR 30MG30 MG/TAB PO; +LASIX 20MG TABL20 MG PO; +PACERONE200 MG PO
== END ==
LOC: COL.RAD 10:06
DX: Z01.812 Encounter for preprocedural laboratory examination (principal); I65.09 Occlusion and stenosis of unspecified vertebral artery; I65.22 Occlusion and stenosis of left carotid artery; R91.1 Solitary pulmonary nodule
CPT/HCPCS: Q9967

== ENCOUNTER → 2021-06-15 | Outpatient (CLI) | payer MEDICARE, BC | LOC: COL.PUL 07:27 | DX: R06.02 Shortness of breath (principal); F17.200 Nicotine dependence, unspecified, uncomplicated ==

== ENCOUNTER 2021-07-08 04:31 | Inpatient (IN) | payer MEDICARE, BC ==
[~2021-07-08] VITALS: Ht 167.7 cm; Wt 64.0 kg
[~2021-07-08 04:31] MED LIST changes: -BETAPACE 80MG80 MG PO; -ELIQUIS 5MG PO; -IMDUR 30MG30 MG/TAB PO; -LASIX 20MG TABL20 MG PO; -PACERONE200 MG PO
[2021-07-08 05:22] LABS: BASO # 0.1 K/mm3 (0.0-0.2); BASO % 0.9 % (0.0-2.0); EOS # 0.2 K/mm3 (0.0-0.7); EOS % 1.9 % (0-4.0); GRAN # 5.7 K/mm3 (1.4-6.5); GRAN % 71.4 % (42.2-75.2); HEMOGLOBIN 11.2 g/dl (13.5-18.0); LYMPH # 1.4 K/mm3 (1.2-3.4); LYMPH % 17.6 % (20.0-51.0); MEAN CELL VOLUME 95 fl (80.0-100.0); MEAN CORPUSCULAR HEMOGLOBIN 32 pg (27.0-31.0); MEAN CORPUSCULAR HGB CONC 34 g/dl (33.0-37.0); MONO # 0.6 K/mm3 (0.1-0.6); MONO % 7.9 % (1.7-9.3); PLATELET COUNT 328 K/mm3 (130-400); RED BLOOD COUNT 3.46 M/mm3 (4.20-5.60); REDCELL DISTRIBUTION WIDTH-CV 12.1 % (11.5-14.5)
[2021-07-08] MEDS ORDERED: PACERONE200 MG PO (05:27)
[2021-07-08 05:33] LABS: HEMATOCRIT 32.8 % (42.0-52.0)
[2021-07-08 05:34] LABS: ALBUMIN 3.2 gm/dL (3.4-4.8); BILIRUBIN,TOTAL 0.6 mg/dL (0.2-1.2); CALCIUM 8.8 mg/dL (8.4-10.2); CREATININE, serum 1.38 mg/dL (0.72-1.25); POTASSIUM 4.4 mmol/L (3.5-4.5); TOTAL PROTEIN 7.3 gm/dL (6.2-8.1)
[2021-07-08 05:39] LABS: TROPONIN-I 0.909 ng/mL (0.00-0.033)
[2021-07-08 06:43] LABS: COLLECTION METHOD CLEAN CATCH
[2021-07-08 06:57] LABS: MUCOUS Present (NOT PRESENT); PH 5 (5-8); SQUAMOUS EPITHELIAL None Seen /hpf (0-10); URINE APPEARANCE Clear (CLEAR/HAZY); URINE BACTERIA None Seen (NONE SEEN); URINE BILIRUBIN Negative (NEGATIVE); URINE BLOOD Negative (NEGATIVE); URINE COLOR Straw (YELLOW); URINE GLUCOSE Negative (NEGATIVE); URINE KETONE Negative (NEGATIVE); URINE LEUKOCYTE ESTERASE Negative (NEGATIVE); URINE NITRATE Negative (NEGATIVE); URINE PROTEIN(semi-quant) Negative (NEGATIVE); URINE RBC 0-2 /hpf (0-2); URINE UROBILINOGEN Negative (NEGATIVE); URINE WBC 0-2 /hpf (0-2)
[2021-07-08 08:11] VITALS: BP 149/63; PULSE 64; TEMP 98
--- NOTE | 2021-07-08 08:18 | NUR ---
Pt. admitted to room 356. Pt. alert and able to answer questions appropriately. Assessment complete and vitals taken. Pt. oriented to the unit. Pt. verbalized understanding of call light, needs addressed.
--- NOTE | 2021-07-08 08:46 | NUR ---
New critical troponin result available. Dr. Pina notified on the telephone and is aware. Complaint Evaluation Supervisor consult in place, Dr. Chappell notified face to face regarding pt.'s consult and he is aware.
[2021-07-08 11:36] VITALS: BP 124/59; PULSE 58; TEMP 98.1
--- NOTE | 2021-07-08 11:38 | NUR ---
machine farmworker met with patient to discuss discharge plan. Patient's Landy ([phone]) present at bedside. Patient reports that he lives at home with his here in [place]. Patient reports that he is independent with his activities of daily living and that he does not utilize any DME to assist with mobility. Patient reports that he is an avid golf player and stays active.Patient does not utilize oxygen at home however he is currenty on 2L in room. PCP is Dr. Murray and he utilizes [facility] for medications with no cost difficulties. Patient reports that he does not have a DPOA-HC and is not interested in establishing one at this time. Education provided to the patient surrounding what a DPOA-HC is and that his would be his legal decision maker. Patient states that he has a will created and is not interested in creating a DPOA-HC. Patient is planning on returning home post dc. Educated him that if he was to need oxygen that public health social worker would be here to help set that up for him. Discharge plan: Home with . May need oxygen post dc.
--- NOTE | 2021-07-08 11:38 | NUR ---
Pt. progressing w/ plan of care. Pt. ambulated on the unit and tolerated ambulation well. Plan for pt. to be NPO at midnight.
--- NOTE | 2021-07-08 13:44 | NUR ---
Pt. took of his supplemental O2 via nasal cannula to eat. Pt.'s oxygen level without supplemental O2 is 89%-93%. This RN put pt. on 1L for supplemental O2.
[2021-07-08 15:25] VITALS: BP 110/56; PULSE 58; TEMP 97.7
--- NOTE | 2021-07-08 15:48 | NUR ---
New critical result for troponin available, Dr. Pina notified on the telephone. Pt. was given afternoon lasix. Pt. was given educational information, printed, on sotalol medication and lasix medication. All questions answered.
--- NOTE | 2021-07-08 18:33 | NUR ---
Pt.'s trop critically elevated this evening, ESTRELLITA Antoine notified on the telephone.
[2021-07-08 20:09] VITALS: BP 117/53; PULSE 53; TEMP 98
[2021-07-08 20:21] VITALS: BP 117/53; PULSE 53; TEMP 98
--- NOTE | 2021-07-08 22:00 | NUR ---
Patient is resting in bed, alert and oriented x 4, VSS, denies SOB, at roomair. Tele in place, NSR. Denies pain, nausea or vomiting. Assessment completed, no further needs at this time. Call light within reach.
[2021-07-09] VITALS (8 sets, daily range): BP systolic 109–125; BP diastolic 50–93; PULSE 53–64; TEMP 97.3–98.3
--- NOTE | 2021-07-09 06:11 | NUR ---
PT HAD AN UNEVENTFUL NIGHT. PT REMAINED PLEASANT AND COOPERATIVE. PT ASKED QUESTIONS ABOUT SOTALOL AND LASIX AND HIS CARE PLAN. PT EXPRESSED UNDERSTANDING ABOUT HIS MEDICATION. CALL LIGHT IN REACH, BED IN LOWEST POSITION, WHEELS LOCKED, NO OTHER NEEDS AT THIS TIME.
[2021-07-09 06:41] LABS: BASO % 0.1 % (0.0-2.0); GRAN # 6.2 K/mm3 (1.4-6.5); GRAN % 82.5 % (42.2-75.2); LYMPH # 0.8 K/mm3 (1.2-3.4); LYMPH % 10.3 % (20.0-51.0); MEAN CELL VOLUME 94 fl (80.0-100.0); MEAN CORPUSCULAR HGB CONC 34 g/dl (33.0-37.0); MEAN PLATELET VOLUME 10.1 fl (7.4-10.4); MONO # 0.5 K/mm3 (0.1-0.6); MONO % 6.7 % (1.7-9.3); PLATELET COUNT 294 K/mm3 (130-400); REDCELL DISTRIBUTION WIDTH-CV 12.1 % (11.5-14.5)
[2021-07-09 06:47] LABS: HEMATOCRIT 28.2 % (42.0-52.0); HEMOGLOBIN 9.5 g/dl (13.5-18.0); MEAN CORPUSCULAR HEMOGLOBIN 32 pg (27.0-31.0)
[2021-07-09 07:05] LABS: CALCIUM 8.5 mg/dL (8.4-10.2); CREATININE, serum 1.64 mg/dL (0.72-1.25); MAGNESIUM 1.9 mg/dL (1.6-2.6)
[2021-07-09 07:06] LABS: TROPONIN-I 0.628 ng/mL (0.00-0.033)
--- NOTE | 2021-07-09 11:03 | NUR ---
Pt. progressing w/ plan of care. Dr. Aguirre in to see pt. this AM. Sotalol held for 0900 and plans for 2099 to be held, per Dr. Aguirre order. Pt. denies pain/ further needs. Call light and belongings in reach.
[2021-07-10] VITALS (8 sets, daily range): BP systolic 115–154; BP diastolic 43–91; PULSE 51–103; TEMP 97.4–98.1
--- NOTE | 2021-07-10 06:22 | NUR ---
Patient has had an uneventful night. No complaints of pain; patient independent in room. HR has remained in sinus trini throughout the night. No new concerns, education provided on amador scan on Sunday.
[2021-07-10 06:58] LABS: BASO % 0.5 % (0.0-2.0); EOS # 0.1 K/mm3 (0.0-0.7); EOS % 1.1 % (0-4.0); GRAN # 5.2 K/mm3 (1.4-6.5); GRAN % 64.8 % (42.2-75.2); LYMPH % 25.5 % (20.0-51.0); MEAN CELL VOLUME 95 fl (80.0-100.0); MEAN CORPUSCULAR HGB CONC 34 g/dl (33.0-37.0); MONO # 0.6 K/mm3 (0.1-0.6); MONO % 7.7 % (1.7-9.3); PLATELET COUNT 317 K/mm3 (130-400); RED BLOOD COUNT 3.07 M/mm3 (4.20-5.60); REDCELL DISTRIBUTION WIDTH-CV 12.3 % (11.5-14.5)
[2021-07-10 07:05] LABS: HEMOGLOBIN 9.8 g/dl (13.5-18.0); MEAN CORPUSCULAR HEMOGLOBIN 32 pg (27.0-31.0)
[2021-07-10 07:22] LABS: CALCIUM 8.9 mg/dL (8.4-10.2); CREATININE, serum 1.39 mg/dL (0.72-1.25); POTASSIUM 3.7 mmol/L (3.5-4.5)
--- NOTE | 2021-07-10 19:54 | NUR ---
Assessment complete. currently at bedside. Patient ambulates independently in room; he has no complaints at this time. He requests melatonin which is administered. Sotalol administered. Questions answers regarding lexiscan in AM. Call light in reach.
[2021-07-11] VITALS (10 sets, daily range): BP systolic 119–163; BP diastolic 49–90; PULSE 51–71; TEMP 97.3–97.8
--- NOTE | 2021-07-11 07:00 | NUR ---
Report received from Ct, ICU nurse, pt going to have foster this am, will ocntinue to monitor.
--- NOTE | 2021-07-11 10:46 | NUR ---
Initial visit attempt; Patient out of room for 'procedure,' Military Aircraft Designer spoke with patient's and daughter letting them know of the availability of spiritual care at our hospital. They both expressed thanks to Military Aircraft Designer for stopping and stated they would relay the visit to the patient.
--- NOTE | 2021-07-11 11:00 | NUR ---
Assessment charted. PT in bed resting after lexiscan, discussed finding and plan for heart catheterization tomorrow with Dr. Saenz. Pt agreeable to plan. up ad leatha, alert ando riented, family at bedside, will conitnue to monitor.
[2021-07-11 11:14] LABS: CALCIUM 8.7 mg/dL (8.4-10.2); CREATININE, serum 1.24 mg/dL (0.72-1.25); MAGNESIUM 1.9 mg/dL (1.6-2.6); POTASSIUM 4.2 mmol/L (3.5-4.5)
--- NOTE | 2021-07-11 17:31 | NUR ---
Pt has done well over shift, up to shower, family at bedside. Calld Dany so family could talk with them regarding heart catheterization tomorrow. Agreeable and consent signed on chart. Will give report to kobe romero who will resume care.
--- NOTE | 2021-07-11 21:52 | NUR ---
Patient assessed around 2100. Alert and oriented, and able to make needs known. Denies pain and discomfort. Patient aware of heart cath scheduled for tomorrow around 0830, and that he can not eat or drink anything after midnight. Voices no questions, needs, or concerns at this time. In bed with call light within reach.
[2021-07-12] VITALS (285 sets, daily range): BP systolic 115–152; BP diastolic 45–93; PULSE 49–67; TEMP 96.7–97.8; O2SAT 83–100
--- NOTE | 2021-07-12 05:13 | NUR ---
Patient has denied pain and discomfort this shift. Has been NPO since midnight for heart cath today. Voices no questions, needs, or concerns this shift. In bed with call light within reach.
[2021-07-12 06:46] LABS: BASO % 0.6 % (0.0-2.0); EOS # 0.2 K/mm3 (0.0-0.7); EOS % 2.4 % (0-4.0); GRAN # 4.3 K/mm3 (1.4-6.5); GRAN % 58.8 % (42.2-75.2); HEMOGLOBIN 10.6 g/dl (13.5-18.0); LYMPH # 2.1 K/mm3 (1.2-3.4); LYMPH % 28.8 % (20.0-51.0); MEAN CELL VOLUME 99 fl (80.0-100.0); MEAN CORPUSCULAR HEMOGLOBIN 32 pg (27.0-31.0); MEAN CORPUSCULAR HGB CONC 32 g/dl (33.0-37.0); MEAN PLATELET VOLUME 9.9 fl (7.4-10.4); MONO # 0.7 K/mm3 (0.1-0.6); MONO % 9.1 % (1.7-9.3); PLATELET COUNT 351 K/mm3 (130-400); RED BLOOD COUNT 3.32 M/mm3 (4.20-5.60); REDCELL DISTRIBUTION WIDTH-CV 12.3 % (11.5-14.5)
[2021-07-12 06:50] LABS: HEMATOCRIT 32.8 % (42.0-52.0)
[2021-07-12 07:04] LABS: CALCIUM 9.1 mg/dL (8.4-10.2); CREATININE, serum 1.17 mg/dL (0.72-1.25); POTASSIUM 4.1 mmol/L (3.5-4.5)
--- NOTE | 2021-07-12 08:18 | NUR ---
Pt assessment complete. Pt has a student nurse assisting him this AM. Pt is up ambulating in his room independently. Pt denies any pain. No SOB. Pt denies N/V. chemical laboratory technician in with patient prepping him for procedure. No needs at this time.
--- NOTE | 2021-07-12 08:20 | NUR ---
Pt left for chemical laboratory chief at this time.
--- NOTE | 2021-07-12 08:38 | NUR ---
SEE MERGE FOR ALL MEDICATION ADMINISTRATION TIMES/DOSAGES AND INTRA/POST SEDATION ASSESSMENT.
--- NOTE | 2021-07-12 09:45 | NUR ---
RECEIVED REPORT FROM MORGAN OLIVERA FROM [facility]IND LOOM TENDER. AWAITING ARRIVAL OF PT TO ICU 8.
--- NOTE | 2021-07-12 09:55 | NUR ---
PT ARRIVES TO ICU 8. PLACED ON BEDSIDE CONTINUOUS MONITOR. VSS. PT ON RA. CALL LIGHT AND URINAL WITHIN REACH. RT RADIAL CATH SITE C/D/I. PER REPORT, 12 ML IN TR BAND. PT EDUCATED ON POC, VERBALIZED UNDERSTANDING. FAMILY BROUGHT TO BEDSIDE.
--- NOTE | 2021-07-12 10:11 | NUR ---
RECEIVED REPORT FROM MORGAN GUTIERREZ WHO HAD PT WHEN HE WAS IN 356. ALL PERSONAL BELONGINGS BROUGHT DOWN TO PT'S NEW ROOM.
--- NOTE | 2021-07-12 10:55 | NUR ---
SPOKE WITH ALLEN RODAS AND DR FRIEND ABOUT PT'S HR HITTING LOW 42 IF THEY STILL WANT SOTALOL GIVEN, DR FRIEND SAYS YES AND JUST MONITOR CLOSELY. SEE MAR.
--- NOTE | 2021-07-12 18:30 | NUR ---
AT 1725, RT RADIAL CATH SITE NOTED TO BE BLEEDING A LITTLE MORE. 4ML READDED BACK TO TR BAND TO MAKE TOTAL OF 8ML IN BAND. AT 1830, TR BAND TAKEN OFF TO ACCESS SITE CLEARLY. CLEANED UP. NOTED SMALL OOZING NOTED. MISAEL PRESSURE HELD FOR 5 MINS, STILL OOZING SOME. TR BAND PLACED BACK ON AND 6ML PUT IN IT. INFORMED PT AND OF POC OF LEAVING ALONE FOR ANOTHER HOUR TO SEE IF IT STOPS. VERBALIZED UNDERSTANDING OF POC.
--- NOTE | 2021-07-12 19:00 | NUR ---
PT TRASNFERRED VIA WC ON RA TO 319. STEADY GAIT. PT DENIES ANY CP/PRESSURE. CALL LIGHT WITHIN REACH. TELEMETRY BOX ON. REPORT GIVEN BEDSIDE TO MORGAN THEODORE. ALL PERSONAL BELONGINGS SENT WITH PT. PT'S ACCOMPANYING PT.
--- NOTE | 2021-07-12 22:00 | NUR ---
ASSESSMENT COMPLETE. PT COOPERATIVE WITH CARES. PT SITTING ON SIDE OF BED WITH HIS BY HIS SIDE. MORGAN THEODORE CAREFULLY REMOVED HIS RADIAL BAND, WITH NO BLEEDING OBSERVED. MORGAN THEODORE CLEANED AND PLACED A GAUZE WITH TAPE OVER SITE. PT DENIES PAIN, PALPITATIONS, SOB OR DIZZINESS. PT STATES HE HAS NO OTHER NEEDS AT THIS TIME. CALL LIGHT WITHIN REACH.
[2021-07-13 00:52] VITALS: BP 134/70; PULSE 67; TEMP 97.6
[2021-07-13 04:00] VITALS: BP 137/53; PULSE 65; TEMP 97.8
--- NOTE | 2021-07-13 06:21 | NUR ---
PT RESTING IN BED. PT DENIES PAIN, PALPITATIONS, SOB OR DIZZINESS. PT'S RADIAL BAND SITE IS CLEAN, DRY AND INTACT. PT STATES HE HAS NO OTHER NEEDS AT THIS TIME. CALL LIGHT WITHIN REACH.
[2021-07-13 06:42] LABS: BASO # 0.1 K/mm3 (0.0-0.2); BASO % 0.6 % (0.0-2.0); EOS # 0.2 K/mm3 (0.0-0.7); EOS % 1.9 % (0-4.0); GRAN # 5.7 K/mm3 (1.4-6.5); GRAN % 71.1 % (42.2-75.2); HEMOGLOBIN 10.4 g/dl (13.5-18.0); LYMPH # 1.4 K/mm3 (1.2-3.4); LYMPH % 17.2 % (20.0-51.0); MEAN CORPUSCULAR HEMOGLOBIN 32 pg (27.0-31.0); MEAN CORPUSCULAR HGB CONC 34 g/dl (33.0-37.0); MEAN PLATELET VOLUME 9.8 fl (7.4-10.4); MONO # 0.7 K/mm3 (0.1-0.6); PLATELET COUNT 340 K/mm3 (130-400); REDCELL DISTRIBUTION WIDTH-CV 12.3 % (11.5-14.5)
[2021-07-13 06:52] LABS: HEMATOCRIT 30.7 % (42.0-52.0); MEAN CELL VOLUME 93 fl (80.0-100.0)
[2021-07-13 07:39] LABS: CALCIUM 8.4 mg/dL (8.4-10.2); CREATININE, serum 1.22 mg/dL (0.72-1.25); POTASSIUM 4.2 mmol/L (3.5-4.5)
[2021-07-13 08:22] VITALS: BP 120/52; PULSE 57; TEMP 97.4
[2021-07-13 09:19] VITALS: BP 120/52; PULSE 57; TEMP 97.4
--- NOTE | 2021-07-13 09:21 | NUR ---
Pt assessment complete. Pt asking about going home. POC discussed with patient. Pt denies any pain. States he has some SOB when sitting up in the chair. Site to R radial no longer bleeding. No N/V. Denies needs, call light within reach.
[2021-07-13] MEDS ORDERED: IMDUR 30MG30 MG/TAB PO (09:40)
[2021-07-13] MEDS ORDERED: BETAPACE 80MG80 MG PO (09:40)
[2021-07-13] MEDS ORDERED: LASIX 20MG TABL20 MG PO (10:18)
[2021-07-13] MEDS ORDERED: ELIQUIS 5MG PO (10:18)
--- NOTE | 2021-07-13 11:24 | NUR ---
Discharge paperwork, instructions and medications reviewed with patient. All questions answered at this time. Pt walked out of facility by staff member at this time.
--- NOTE | 2021-07-13 11:29 | NUR ---
The patient discharged back home with his today, 07/13. No additional needs at this time.
== END 2021-07-13 11:25 | disposition home or self-care (01) | DRG 250 ==
LOC: COL.ER 04:31 → MEDICAL 06:54 → ICU 07-12 10:25 → MEDICAL 07-12 10:25 → ICU 07-12 10:25 → MEDICAL 07-12 19:20
PROVIDERS: Emergency Medicine; Nurse Practitioner; Physician Assistant; ADMIT Internal Medicine
PROC: 02713ZZ Dilation of Coronary Artery, Two Arteries, Percutaneous Approach (ICD-10-PCS; principal; 2021-07-08)
PROC: 4A023N7 Measurement of Cardiac Sampling and Pressure, Left Heart, Percutaneous Approach (ICD-10-PCS; 2021-07-08)
PROC: B2111ZZ Fluoroscopy of Multiple Coronary Arteries using Low Osmolar Contrast (ICD-10-PCS; 2021-07-08)
DX: I13.0 Hypertensive heart and chronic kidney disease with heart failure and stage 1 through stage 4 chronic kidney disease, or unspecified chronic kidney disease (principal); I50.31 Acute diastolic (congestive) heart failure; I21.4 Non-ST elevation (NSTEMI) myocardial infarction; N17.9 Acute kidney failure, unspecified; J44.9 Chronic obstructive pulmonary disease, unspecified; E78.5 Hyperlipidemia, unspecified; I25.10 Atherosclerotic heart disease of native coronary artery without angina pectoris; I48.0 Paroxysmal atrial fibrillation; I35.0 Nonrheumatic aortic (valve) stenosis; N18.9 Chronic kidney disease, unspecified; Z79.82 Long term (current) use of aspirin; Z85.51 Personal history of malignant neoplasm of bladder; Z20.822 Contact with and (suspected) exposure to COVID-19
CPT/HCPCS: 99222-AI; 99232-AI; 99233-AI; 99239; A9500; C1725; C1769; C1887; J0583; J1644; J1650; J1940; J2250; J2785; J2930; J3010; Q9967

== ENCOUNTER 2021-07-17 13:25 | Emergency (ER) | payer MEDICARE, BC ==
[~2021-07-17] VITALS: Ht 167.6 cm; Wt 63.6 kg
[~2021-07-17 13:25] MED LIST changes: +BETAPACE 80MG80 MG PO; +ELIQUIS 5MG PO; +IMDUR 30MG30 MG/TAB PO; +LASIX 20MG TABL20 MG PO; +PACERONE200 MG PO
[2021-07-17 14:50] VITALS: TEMP 98.1
[2021-07-17 15:00] VITALS: BP 103/51; PULSE 52
== END 2021-07-17 15:52 | disposition home or self-care (01) ==
LOC: COL.ER 13:25
DX: S41.112A Laceration without foreign body of left upper arm, initial encounter (principal); X58.XXXA Exposure to other specified factors, initial encounter

== ENCOUNTER 2022-03-24 14:45 | Observation (INO) | payer MEDICARE, BC ==
[~2022-03-24] VITALS: Ht 167.6 cm; Wt 62.5 kg
[2022-03-24 15:24] LABS: BASO # 0.1 K/mm3 (0.0-0.2); BASO % 0.8 % (0.0-2.0); EOS # 0.1 K/mm3 (0.0-0.7); EOS % 1.9 % (0.0-4.0); GRAN % 67.4 % (42.2-75.2); HEMOGLOBIN 12.2 g/dl (13.5-18.0); LYMPH # 1.3 K/mm3 (1.2-3.4); LYMPH % 21.7 % (20.0-51.0); MEAN CELL VOLUME 97 fl (80.0-100.0); MEAN CORPUSCULAR HEMOGLOBIN 33 pg (27-31); MEAN CORPUSCULAR HGB CONC 33 g/dl (33.0-37.0); MEAN PLATELET VOLUME 9.3 fl (7.4-10.4); MONO # 0.5 K/mm3 (0.1-0.6); PLATELET COUNT 282 K/mm3 (130-400); RED BLOOD COUNT 3.75 M/mm3 (4.20-5.60); REDCELL DISTRIBUTION WIDTH-CV 13.2 % (11.5-14.5)
[2022-03-24 15:25] LABS: HEMATOCRIT 36.5 % (42.0-52.0)
[2022-03-24 15:34] LABS: INR 1.1 (0.8-3.0); PROTHROMBIN TIME 12.3 SECONDS (9.7-12.8)
[2022-03-24 15:43] LABS: ALBUMIN 3.2 gm/dL (3.4-4.8); BILIRUBIN,TOTAL 0.7 mg/dL (0.2-1.2); CALCIUM 8.7 mg/dL (8.4-10.2); CREATININE, serum 1.02 mg/dL (0.72-1.25); TOTAL PROTEIN 6.6 gm/dL (6.2-8.1)
[2022-03-24 15:48] LABS: TROPONIN-I 0.017 ng/mL (0.00-0.033)
[2022-03-24] MEDS ORDERED: ASPIRIN 81M81 MG/TA2 PO (19:13)
--- NOTE | 2022-03-24 22:00 | NUR ---
Admitted to medical floor from ER- DX, increased troponin, fall, syncopal episode,, pt alert/oriented x4, denies any pain or weakness, states he is fine now, denies chest pain, on tele, neuros intact, pt requesting a snack, up to bathroom, steady on feet= informed pt he is a fall risk- not happt about this but agrees, bed alarm on-will call for assistance to bathroom.
[2022-03-24 23:05] VITALS: BP 172/69; PULSE 66; TEMP 98.4
[2022-03-25 01:46] VITALS: BP 156/77; PULSE 68
[2022-03-25 04:46] VITALS: BP 171/69; PULSE 87; TEMP 98.4
--- NOTE | 2022-03-25 07:00 | NUR ---
Did not get much sleep last night due to interuptions- VSS, did do a covid swab- negative,,voiding without problems, Iv fluids continue to infuse at 75cc/hr, most recent troponin back at 0.012. no chest pain,no dizziness,no weakness-
[2022-03-25 07:50] VITALS: BP 169/54; PULSE 64; TEMP 97.4
--- NOTE | 2022-03-25 09:45 | NUR ---
Pt. sitting up at bedside eating breakfast. and son at bedside. Pt. is A&OX3, assessment complete. IV to lt. wrist patent, IV fluids infusing per orders. Pt. denies further needs, call light within reach.
[2022-03-25 09:58] LABS: BASO # 0.1 K/mm3 (0.0-0.2); BASO % 0.7 % (0.0-2.0); EOS # 0.1 K/mm3 (0.0-0.7); EOS % 1.6 % (0.0-4.0); GRAN # 5.2 K/mm3 (1.4-6.5); GRAN % 71.6 % (42.2-75.2); LYMPH # 1.4 K/mm3 (1.2-3.4); LYMPH % 18.9 % (20.0-51.0); MEAN CELL VOLUME 98 fl (80.0-100.0); MEAN CORPUSCULAR HEMOGLOBIN 33 pg (27-31); MEAN CORPUSCULAR HGB CONC 34 g/dl (33.0-37.0); MEAN PLATELET VOLUME 9.4 fl (7.4-10.4); MONO # 0.5 K/mm3 (0.1-0.6); MONO % 7.1 % (1.7-9.3); PLATELET COUNT 270 K/mm3 (130-400); RED BLOOD COUNT 3.66 M/mm3 (4.20-5.60); REDCELL DISTRIBUTION WIDTH-CV 13.1 % (11.5-14.5)
[2022-03-25 10:06] LABS: HEMATOCRIT 35.7 % (42.0-52.0)
[2022-03-25 10:15] LABS: CALCIUM 8.6 mg/dL (8.4-10.2); CREATININE, serum 0.95 mg/dL (0.72-1.25)
[2022-03-25 10:22] LABS: TROPONIN-I 0.015 ng/mL (0.00-0.033)
--- NOTE | 2022-03-25 11:18 | NUR ---
SW met with patient to complete intake. Patient states that he lives with his Landy Varela [phone] in [facility]. Spouse was present as well as son ACE [phone]. Patient provides that he does not utilize DME, is independent with ADL's and does not use home health services at this time. PCP is Dr. Murray and pharmacy is [facility]. Patient provides he does not wish to appoint anyone as DPOA/HC at this time. Plan is to return to his home upon DC. SW will continue to follow. DC plan: home
[2022-03-25 11:51] VITALS: BP 153/75; PULSE 51; TEMP 97.6
[2022-03-25 11:54] VITALS: BP 154/69; PULSE 54
--- NOTE | 2022-03-25 14:00 | NUR ---
Pt. down to CT at this time.
--- NOTE | 2022-03-25 14:20 | NUR ---
Pt. returned to the floor.
[2022-03-25 15:01] VITALS: BP 156/60; PULSE 60; TEMP 97.3
--- NOTE | 2022-03-25 16:10 | NUR ---
Pt. has dicharge orders. Reviewed health summary, med. rec, discharge instructions and education with pt. and family. Pt. also informed about following up with Dany and ksenia. care that pt. already sees. Pt. and family voice understanding. INT discontinued from lt. wrist. Pt. ambulated out with this nurse.
== END 2022-03-25 16:15 | disposition home or self-care (01) ==
LOC: COL.ER 14:45 → MEDICAL 20:28
PROVIDERS: Emergency Medicine; Internal Medicine; ADMIT Student in an Organized Health Care Education/Training Program
DX: I25.10 Atherosclerotic heart disease of native coronary artery without angina pectoris (principal); I11.0 Hypertensive heart disease with heart failure; I50.30 Unspecified diastolic (congestive) heart failure; E78.5 Hyperlipidemia, unspecified; I48.0 Paroxysmal atrial fibrillation; Z85.51 Personal history of malignant neoplasm of bladder; D64.9 Anemia, unspecified; F17.210 Nicotine dependence, cigarettes, uncomplicated
CPT/HCPCS: G0378; J1650; J7030; Q9967

== ENCOUNTER 2022-06-17 10:31 | Inpatient (IN) | payer MEDICARE, BC ==
[~2022-06-17] VITALS: Ht 165.1 cm; Wt 63.6 kg
[~2022-06-17 10:31] MED LIST changes: +BETAPACE 120MG120 MG PO; +CLEOCIN HC150 MG/CAP PO; +COMPLETE MULTI1 TAB PO; -LIPITOR 40MG TA40 MG PO; +LIPITOR 80MG80 MG PO; +NORCO 325 MG-51 TAB PO
[2022-06-17 10:49] LABS: BASO % 0.6 % (0.0-2.0); EOS # 0.2 K/mm3 (0.0-0.7); EOS % 2.2 % (0.0-4.0); GRAN # 4.2 K/mm3 (1.4-6.5); GRAN % 62.3 % (42.2-75.2); HEMOGLOBIN 11.9 g/dl (13.5-18.0); LYMPH # 1.8 K/mm3 (1.2-3.4); LYMPH % 26.5 % (20.0-51.0); MEAN CELL VOLUME 97 fl (80.0-100.0); MEAN CORPUSCULAR HEMOGLOBIN 33 pg (27-31); MEAN CORPUSCULAR HGB CONC 34 g/dl (33.0-37.0); MONO # 0.5 K/mm3 (0.1-0.6); MONO % 8.1 % (1.7-9.3); PLATELET COUNT 235 K/mm3 (130-400); RED BLOOD COUNT 3.61 M/mm3 (4.20-5.60); REDCELL DISTRIBUTION WIDTH-CV 12.8 % (11.5-14.5)
[2022-06-17 10:56] LABS: PROTHROMBIN TIME 11.6 SECONDS (9.7-12.8)
[2022-06-17 10:59] LABS: PARTIAL THROMBOPLASTIN TIME 34.3 SECONDS (26.0-37.0)
[2022-06-17 11:06] LABS: ALANINE AMINOTRANSFERASE 14 U/L (0-55); ALBUMIN 3.2 gm/dL (3.4-4.8); ALKALINE PHOSPHATASE 125 U/L (40-150); ANION GAP 8 mmol/L (7-16); AST,SGOT 16 U/L (5-34); BILIRUBIN,TOTAL 0.6 mg/dL (0.2-1.2); BLOOD UREA NITROGEN 14 mg/dL (8-26); CALCIUM 8.5 mg/dL (8.4-10.2); CARBON DIOXIDE 28 mmol/L (23-31); CHLORIDE 106 mmol/L (98-107); CREATININE, serum 1.12 mg/dL (0.72-1.25); GLUCOSE 101 mg/dL (70-99); POTASSIUM 4.1 mmol/L (3.5-4.5); SODIUM 142 mmol/L (136-145); TOTAL PROTEIN 6.7 gm/dL (6.2-8.1)
[2022-06-17 11:13] LABS: TROPONIN-I < 0.010 ng/mL (0.00-0.033)
[2022-06-17 14:41] LABS: COLLECTION METHOD CLEAN CATCH
[2022-06-17 14:50] LABS: MUCOUS Present (NOT PRESENT); SQUAMOUS EPITHELIAL 0-2 /hpf (0-10); URINE BACTERIA None Seen /hpf (NONE SEEN)
[2022-06-17 14:51] LABS: URINE COLOR Yellow (YELLOW)
[2022-06-17 14:52] LABS: URINE APPEARANCE Clear (CLEAR/HAZY); URINE BLOOD TRACE-INTACT (NEGATIVE); URINE GLUCOSE Negative (NEGATIVE); URINE KETONE Negative (NEGATIVE); URINE NITRATE Negative (NEGATIVE); URINE PROTEIN(semi-quant) Negative (NEGATIVE); URINE UROBILINOGEN 0.2 (NEGATIVE)
[2022-06-17 15:06] VITALS: BP 179/60; PULSE 65; TEMP 97.9
[2022-06-17 15:15] VITALS: BP 161/57; PULSE 63; TEMP 97.9
[2022-06-17 15:38] VITALS: BP 159/60; PULSE 62; TEMP 98.2
--- NOTE | 2022-06-17 18:12 | NUR ---
PATIENT ADMITTED TO ROOM 318 FROM ER ACCOMPANIED BY ER STAFF. PATIENT IS HERE FOR LEFT SIDED FACIAL DROOP. NEURO CHECKS ARE WITHIN NORMAL LIMITS. PATIENT IS ALERT AND ORIENTED X4. LEFT SIDED FACIAL DROOP NOTED. NO WEAKNESS OR OTHER DEFICITS NOTED. LUNGS CTA. DENIES PAIN. AMBULATORY INDEPENDENTLY. ATTEMPTED BEDSIDE SWALLOW SCREEN PER ORDER, HOWEVER, UNABLE TO COMPELTE DUE TO PATIENT'S LEFT SIDED FACIAL DROOP. DR. PORTER UPDATED REGARDING INABILITY TO COMPLETE BEDSIDE SWALLOW EVALUATION AND NEED FOR NUTRITION PER SWALLOW EVAL PROTOCOL. PATIENT UPDATED AND VERBALZIED UNDERSTANDING. DENIES FURTHER NEEDS AT THIS TIME. CALL LIGHT IN PLACE. FAMILY AT BEDSIDE.
[2022-06-17 20:10] VITALS: BP 148/57; PULSE 63; TEMP 97.8
--- NOTE | 2022-06-17 20:30 | NUR ---
Pt lying down in bed and watching TV. A&O x4. Report passed from previous shift that according to facial droop in his evaluations pt needs to be placed NPO and Nutrition needs to perform swallowing test. This SENIOR QC TECHNICIAN reported to Charge Nurse about this event. Tele on. RFA INT CDI. During skin assessment stitches from pacemaker placed a month ago are visualized on left upper chest. Pt Shows slight facial droop on left side. No other concern. Pt has a steady gait. Equal strenght on bilateral upper and lower extremities. We will wait for new orders. Call light is within reach.
--- NOTE | 2022-06-17 21:30 | NUR ---
Rosy ARZOLA called regarding NPO status of patient- no Speech therapy available till Sunday- according to bedside swallow eval if pt has facial droop not to contiue and keep pt NPO-- pt has betapace ordered p.o and pt wants to eat! Rosy states to do bedside swallow at this time and call her back-- Did bedside swallow and pt did very well- no issues at all- Rosy called back and pt started on AHA diet at this time, sandwich box given to patient- eating without concerns
[2022-06-17 23:44] VITALS: BP 115/42; PULSE 65; TEMP 97.4
[2022-06-18 03:10] VITALS: BP 124/55; PULSE 71; TEMP 97.6
[2022-06-18 06:41] LABS: BASO % 0.7 % (0.0-2.0); EOS # 0.1 K/mm3 (0.0-0.7); EOS % 2.3 % (0.0-4.0); GRAN # 3.4 K/mm3 (1.4-6.5); GRAN % 61.5 % (42.2-75.2); LYMPH # 1.4 K/mm3 (1.2-3.4); LYMPH % 25.4 % (20.0-51.0); MEAN CELL VOLUME 96 fl (80.0-100.0); MEAN CORPUSCULAR HEMOGLOBIN 33 pg (27-31); MEAN CORPUSCULAR HGB CONC 34 g/dl (33.0-37.0); MEAN PLATELET VOLUME 9.6 fl (7.4-10.4); MONO # 0.6 K/mm3 (0.1-0.6); MONO % 9.9 % (1.7-9.3); PLATELET COUNT 214 K/mm3 (130-400); RED BLOOD COUNT 3.35 M/mm3 (4.20-5.60); REDCELL DISTRIBUTION WIDTH-CV 12.7 % (11.5-14.5)
[2022-06-18 06:45] LABS: HEMATOCRIT 32.3 % (42.0-52.0)
[2022-06-18 06:52] LABS: CALCIUM 8.1 mg/dL (8.4-10.2); CREATININE, serum 0.88 mg/dL (0.72-1.25)
[2022-06-18 07:00] VITALS: BP 134/49; PULSE 62; TEMP 97.4
--- NOTE | 2022-06-18 09:46 | NUR ---
SW met with patient to complete intake. Patient provides that he lives in [facility] with his Landy Varela [phone]. Patient is independent with ADL's, does not utilize DME nor HH services at this time. Patient provides that his PCP is Dr. Murray, and pharmacy is [facility]. is documented as DPOA/HC. Patient plans to return to his home upon DC. SW will continue to follow. DC plan: home
--- NOTE | 2022-06-18 10:39 | NUR ---
SHIFT ASSESSMENT COMPLETED AND MORNING MEDICATIONS ADMINISTERED PER ORDER. PATIENT IS ALERT AND ORIENTED X4. LUNGS CTA. DENIES PAIN. HERE FOR LEFT SIDED FACIAL DROOP, WHICH IS STILL NOTICALBLE. NO LEFT SIDED WEAKNESS NOTED. NEUROS ARE WITHIN NORMAL LIMITS. TOLERATING PO INTAKE WELL. DENIES NEEDS AT THIS TIME. CALL LIGHT WITHIN REACH.
[2022-06-18 12:00] VITALS: BP 144/54; PULSE 62; TEMP 97.7
[2022-06-18 16:00] VITALS: BP 132/47; PULSE 69; TEMP 97.7
--- NOTE | 2022-06-18 19:15 | NUR ---
PATIENT HAS HAD AN UNEVENTFUL DAY. IN BED AT THIS TIME. DENIES PAIN. CONTINUES TO HAVE A LEFT SIDED FACIAL DROOP. NO LEFT SIDED WEAKNESS NOTED. NEURO CHECKS WNL. DENIES NEEDS AT THIS TIME. VISITED WITH FAMILY TODAY. PATIENT TO GET MRI TOMORROW, PER PATIENT, HE HAS A PACEMAKER, STENT, AND WATCHMAN DEVICE. COPIES OF CARDS PLACED ON CHART AND HS NURSE UPDATED. PER , SHE WOULD LIKE TO BE NOTIFIED BEFORE PATIENT GOES TO MRI. WILL UPDATE HS NURSE. CALL LIGHT WITHIN REACH.
[2022-06-18 19:53] VITALS: BP 136/53; PULSE 60; TEMP 97.6
--- NOTE | 2022-06-18 20:30 | NUR ---
Pt lying down. A&O x4. Shift assessment completed. Pt reports feeling better. States that the numbness in his lips decreased a lot. Pt reports that he wants the staff that will perform the MRI to know that he has a pacemaker and a watchmen. RFA CDI INT. Neuroassessment WNL. No worsening of facial drooping. Call light within reach.
[2022-06-18 23:46] VITALS: BP 151/57; PULSE 60; TEMP 97.6
[2022-06-19 04:00] VITALS: BP 145/70; PULSE 60; TEMP 98.4
[2022-06-19 07:31] VITALS: BP 128/59; PULSE 62; TEMP 97.5
--- NOTE | 2022-06-19 07:45 | NUR ---
Pt had an uneventful night. Report given to MELISSA Mar. All medication administered per emar. No needs or concerns at this time. All Neuro assessments were within normal limits besides left facial drooping, which remains the same. Call light within reach.
--- NOTE | 2022-06-19 08:00 | NUR ---
Patient walking the hallway back to room 318. Steady on feet. A&Ox4. VSS. IV CDI. Full ROM. Patient has left facial droop. Tolerating PO intake. Denies pain and discomfort. No further needs expressed. Call light within reach
--- NOTE | 2022-06-19 08:00 | NUR ---
Pt awake and laying in bed. Morning medications administered per eMAR. Shift assessment completed. Pt A&Ox4 with L facial drooping noted. Telemetry remains on; paced. INT in R forearm intact; no edema or redness. No further requests at this time. Call light within reach.
[2022-06-19 11:34] VITALS: BP 134/59; PULSE 67; TEMP 97.8
[2022-06-19 16:17] VITALS: BP 147/75; PULSE 72; TEMP 97.9
--- NOTE | 2022-06-19 17:19 | NUR ---
This COAL GRADER provided pt discharge instructions. All questions answered. INT in R forearm removed; catheter tip intact. This COAL GRADER escorted pt out of facility at this time.
== END 2022-06-19 17:19 | disposition home or self-care (01) | DRG 65 ==
LOC: COL.ER 10:31 → MEDICAL 13:28
PROVIDERS: Emergency Medicine; ADMIT Student in an Organized Health Care Education/Training Program
DX: I63.9 Cerebral infarction, unspecified (principal); G81.94 Hemiplegia, unspecified affecting left nondominant side; I25.10 Atherosclerotic heart disease of native coronary artery without angina pectoris; I48.91 Unspecified atrial fibrillation; J44.9 Chronic obstructive pulmonary disease, unspecified; E78.5 Hyperlipidemia, unspecified; F10.90 Alcohol use, unspecified, uncomplicated; F17.210 Nicotine dependence, cigarettes, uncomplicated; R29.702 NIHSS score 2; I10 Essential (primary) hypertension; E78.1 Pure hyperglyceridemia; R29.810 Facial weakness; R47.81 Slurred speech; Z79.82 Long term (current) use of aspirin; Z95.0 Presence of cardiac pacemaker; Z23 Encounter for immunization; Z85.51 Personal history of malignant neoplasm of bladder; Z95.5 Presence of coronary angioplasty implant and graft; Z88.8 Allergy status to other drugs, medicaments and biological substances; I25.2 Old myocardial infarction
CPT/HCPCS: J1650; J7030; Q9967

== ENCOUNTER → 2023-08-28 | Outpatient (CLI) | payer MEDICARE, BC ==
[~2023-08-28] MED LIST changes: +B-121000 MCG; +COLCRYS0.6 MG PO; +Iohexol 300 - 100 ML VIAL IV ONE; +NS 100 ML IV SCH; +PREDNISONE20 MG PO
== END ==
LOC: COL.RAD 08:59
DX: I71.43 Infrarenal abdominal aortic aneurysm, without rupture (principal); I77.4 Celiac artery compression syndrome
CPT/HCPCS: Q9967